=== PATIENT | male | born 1965 | race Caucasian/White ===

== ENCOUNTER 2017-07-05 22:49 | Emergency (ER) | payer OTHER ==
[~2017-07-05] VITALS: Ht 190.5 cm; Wt 106.6 kg
[~2017-07-05 22:49] MED LIST: BACLOFEN10 MG PO; COL-RITE250 MG PO; GABAPENTIN300 MG PO; NORTRIPTYLINE H25 MG PO; OXYCODONE HCL5 MG PO; OXYCONTIN10 MG PO; TRAMADOL HCL50 MG PO; VENTOLIN HFA18 GM INH
== END 2017-07-06 00:58 | disposition home or self-care (01) ==
LOC: ED 22:49
DX: S13.4XXA Sprain of ligaments of cervical spine, initial encounter (principal); I10 Essential (primary) hypertension; F17.200 Nicotine dependence, unspecified, uncomplicated; Z88.0 Allergy status to penicillin; Z79.899 Other long term (current) drug therapy; W05.0XXA Fall from non-moving wheelchair, initial encounter
CPT/HCPCS: 70450; 72125; 99284

== ENCOUNTER 2017-08-11 20:24 | Emergency (ER) | payer OTHER ==
[~2017-08-11] VITALS: Ht 190.5 cm; Wt 106.6 kg
[2017-08-11] MEDS ORDERED: NEURONTIN400 MG PO (20:34)
== END 2017-08-11 23:05 | disposition home or self-care (01) ==
LOC: ED 20:24
DX: S16.1XXA Strain of muscle, fascia and tendon at neck level, initial encounter (principal); I10 Essential (primary) hypertension; F17.200 Nicotine dependence, unspecified, uncomplicated; Z88.0 Allergy status to penicillin; Z79.899 Other long term (current) drug therapy; W01.0XXA Fall on same level from slipping, tripping and stumbling without subsequent striking against object, initial encounter
CPT/HCPCS: 70450; 72125; 99284

== ENCOUNTER 2018-03-02 21:29 | Emergency (ER) | payer OTHER ==
[~2018-03-02] VITALS: Ht 190.5 cm; Wt 108.9 kg
[~2018-03-02 21:29] MED LIST changes: +NEURONTIN400 MG PO
[2018-03-02] MEDS ORDERED: CYCLOBENZAPRINE10 MG PO (21:41)
[2018-03-03] MEDS ORDERED: PREDNISONE20 MG PO (00:30)
[2018-03-03] MEDS ORDERED: IPRAT-ALBUT 0.5-3 ML INH (00:30)
[2018-03-03] MEDS ORDERED: TRUNEB NEBULIZ1 EACH INH (00:32)
--- NOTE | 2018-03-03 06:25 | EKG ---
[facility] [address] [place] [address] Signed Normal sinus rhythm Left axis deviation Nonspecific T wave abnormality Abnormal ECG When compared with ECG of 10-MAY-2017 03:45, Minimal criteria for Inferior infarct are no longer present Confirmed by JUSTIN PARIS MD ([id number]) on 03/03/2018 6:25:32 AM Electronically Signed By: JUSTIN PARIS MD 03/03/18 0625 PATIENT NAME: CHAMALINI YANIRA Electrocardiogram DATE OF : 65 PHYSICIAN: JUSTIN PARIS MD REPORT #: [id number] REPORT IS CONFIDENTIAL AND NOT TO BE RELEASED WITHOUT AUTHORIZATION
== END 2018-03-03 01:18 | disposition home or self-care (01) ==
LOC: ED 21:29
DX: J44.1 Chronic obstructive pulmonary disease with (acute) exacerbation (principal); F17.200 Nicotine dependence, unspecified, uncomplicated; Z88.0 Allergy status to penicillin; Z79.899 Other long term (current) drug therapy
CPT/HCPCS: 71045; 80053; 83735; 84484; 85025; 93005; 93010; 94640; 94644; 96374; 99284; J2930

== ENCOUNTER 2018-08-15 15:15 | Emergency (ER) | payer OTHER ==
[~2018-08-15] VITALS: Ht 190.5 cm; Wt 112.5 kg
--- OUTSIDE RECORDS SUMMARY | ~2018-08-15 | XMS | Encounter Summary ---
Demographics + + + | Address | [address] | | | [place] [address] | + + + | Home Phone | | + + + | Preferred Language | Unknown | + + + | Marital Status | Single | + + + | Moravian Affiliation | Unknown | + + + | Race | Unknown | + + + | Ethnic Group | Unknown | + + + Author + + + | Author | [facility] | + + + | Organization | [facility] | + + + | Address | Unknown | + + + | Phone | Unavailable | + + + Care Team Providers + +------+ + | Care Instrumentation And Control Technician Name | Role | Phone | + +------+ + | Samir Melchor | PCP | | + +------+ + Encounter Details +--------+ + + + + | Date | Type | Department | Care Team | Description | +--------+ + + + + | 07/09/ | Documentati | [facility] [place] | Jacob Bajwa, | | | 2018 | on Only | Nilda Crook | [address] | | | | | [address] | [address], | | | | | [place], [place] | [place] [address] | | | | | [address] | [phone] | | | | | [phone] | | | +--------+ + + + + Social History + +-------+ +--------+------+ | Tobacco Use | Types | Packs/Day | Years | Date | | | | | Used | | + +-------+ +--------+------+ | Never Assessed | | | | | + +-------+ +--------+------+ + + + | Sex Assigned at | Date Recorded | | | | + + + | Not on file | | + + + as of this encounter Plan of Treatment Not on fileas of this encounter Visit Diagnoses Not on filein this encounter"
--- OUTSIDE RECORDS SUMMARY | ~2018-08-15 | XMS | Clinical Summary ---
Demographics + + + | Address | [address] | | | [place] [address] | + + + | Home Phone | | + + + | Preferred Language | Unknown | + + + | Marital Status | Single | + + + | Mandaen Affiliation | Unknown | + + + | Race | Unknown | + + + | Ethnic Group | Unknown | + + + Author + + + | Author | [facility] | + + + | Organization | [facility] | + + + | Address | Unknown | + + + | Phone | Unavailable | + + + Care Team Providers + +------+ + | Care Ethnographic Materials Conservator Name | Role | Phone | + +------+ + | Samir Melchor | PP | | + +------+ + Allergies Not on File Current Medications Not on file Active Problems Not on file Encounters +--------+ + + + + | Date | Type | Specialty | Care Team | Description | +--------+ + + + + | 07/09/ | Documentati | | Garett, Jacob, | | | 2018 | on Only | | MD | | +--------+ + + + + from Last 3 Months Social History + +-------+ +--------+------+ | Tobacco [...] +------+-------+ + | MEDICAID | MISAEL | [id number] | | | [address] | | | N | | | | [place] | | | [place] | | | | [address] | | | TRUST VAULT CLERK | | | | | + +--------+ [...] | Self | [birth year] | Home: | [address] | | | al/Fam | | 1965 | [phone] | [place] | | | thomas | | | [phone] | [phone] | + +--------+ +--------+ + +"
--- OUTSIDE RECORDS SUMMARY | ~2018-08-15 | XMS | Clinical Summary ---
Demographics + + + | Address | [address] | | | [place] [address] | + + + | Home Phone | | + + + | Preferred Language | Unknown | + + + | Marital Status | Single | + + + | Confucianism Affiliation | Unknown | + + + | Race | Unknown | + + + | Ethnic Group | Unknown | + + + Author + + + | Author | [facility] | + + + | Organization | [facility] | + + + | Address | Unknown | + + + | Phone | Unavailable | + + + Care Team Providers + +------+ + | Care Customs Compliance Director Name | Role | Phone | + [...] +------+-------+ + | MEDICAID | MISAEL | [id number] | | | [address] | | | N | | | | [place] | | | [place] | | | | [address] | | | STAFF REGISTERED NURSE | | | | | + +--------+ [...] | | al/Fam | | 1965 | [phone] | [place] | | | [place]omas | | | [phone] | [phone] | + +--------+ +--------+ + +"
--- OUTSIDE RECORDS SUMMARY | ~2018-08-15 | XMS | Encounter Summary ---
Demographics + + + | Address | [address] | | | [place] [address] | + + + | Home Phone | | + + + | Preferred Language | Unknown | + + + | Marital Status | Single | + + + | Religion Affiliation | Unknown | + + + | Race | Unknown | + + + | Ethnic Group | Unknown | + + + Author + + + | Author | [facility] | + + + | Organization | [facility] | + + + | Address | Unknown | + + + | Phone | Unavailable | + + + Care Team Providers + +------+ + | Care Medical Office Assistant Name | Role | Phone | + +------+ + | Samir Melchor | PCP | | + +------+ + Encounter Details +--------+ + + + + | Date | Type | Department | Care Team | Description | +--------+ + + + + | 07/09/ | Documentati | [facility] [place] | Jacob Bajwa, | | | 2018 | on Only | Nilda [facility]ok | [address] | | | | | [address] | [address] [place], | | | | | [place], [place] | [place] [address] | | | | | [address] | [phone] | | | | | [phone] | | | +--------+ + + + [...]
[~2018-08-15 15:15] MED LIST changes: +CYCLOBENZAPRINE10 MG PO; +IPRAT-ALBUT 0.5-3 ML INH; +PREDNISONE20 MG PO; +TRUNEB NEBULIZ1 EACH INH
--- OUTSIDE RECORDS SUMMARY | 2018-08-15 15:20 | XMS ---
PreManage Notification: MALINI CHA Security Director Of Cardiology Events No recent Security Events currently on file CRITERIA MET - [facility] - 2 Visits in 30 Days CARE PROVIDERS SURJIT NANCE [facility] 03/22/2017-Current PHONE: [phone] PCP_Unattributed Primary Care 03/22/2017-Current PHONE: Unknown SURJIT NANCE Primary [facility] Current PHONE: Unknown JASON LUNDBERG Primary [facility] PHONE: Unknown ALEX VELÁZQUEZ Primary Care 07/12/2015-Current PHONE: [phone] Jim has no Care Guidelines for this patient. EClarisse VISIT COUNT (12 MO.) [address] Anthony Dinesh TOTAL 4 NOTE: Visits indicate total known visits. 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
[2018-08-15] MEDS ORDERED: CIPRO500 MG PO (15:54)
== END 2018-08-15 16:35 | disposition home or self-care (01) ==
LOC: ED 15:15
DX: S91.332A Puncture wound without foreign body, left foot, initial encounter (principal); I10 Essential (primary) hypertension; Z87.891 Personal history of nicotine dependence; Z88.0 Allergy status to penicillin; Z79.899 Other long term (current) drug therapy; W45.0XXA Nail entering through skin, initial encounter
CPT/HCPCS: 73630; 99283

== ENCOUNTER 2018-11-24 22:16 | Emergency (ER) | payer OTHER ==
[~2018-11-24] VITALS: Ht 190.5 cm; Wt 112.5 kg
[~2018-11-24 22:16] MED LIST changes: +CIPRO500 MG PO
== END 2018-11-24 23:04 | disposition home or self-care (01) ==
LOC: ED 22:16
DX: S90.112A Contusion of left great toe without damage to nail, initial encounter (principal); W22.8XXA Striking against or struck by other objects, initial encounter; I10 Essential (primary) hypertension; J44.9 Chronic obstructive pulmonary disease, unspecified; F17.200 Nicotine dependence, unspecified, uncomplicated; Z88.0 Allergy status to penicillin
CPT/HCPCS: 73630; 99283

== ENCOUNTER 2019-01-28 02:27 | Emergency (ER) | payer OTHER ==
[~2019-01-28] VITALS: Ht 190.5 cm; Wt 112.5 kg
--- NOTE | 2019-01-28 07:28 | EKG ---
[facility] [address] [place] [address] Signed Normal sinus rhythm Left anterior fascicular block Cannot rule out Inferior infarct (masked by fascicular block?) , age undetermined Abnormal ECG When compared with ECG of 02-MAR-2018 21:51, Minimal criteria for Inferior infarct are now present Nonspecific T wave abnormality no longer evident in Anterior leads Confirmed by JUSTIN PARIS MD ([id number]) on 01/28/2019 7:28:32 AM Electronically Signed By: JUSTIN PARIS MD 01/28/19 0728 PATIENT NAME: MALINI CHA Electrocardiogram DATE OF : 65 PHYSICIAN: JUSTIN PARIS MD REPORT #: [id number] REPORT IS CONFIDENTIAL AND NOT TO BE RELEASED WITHOUT AUTHORIZATION
== END 2019-01-28 04:39 | disposition home or self-care (01) ==
LOC: ED 02:27
DX: J44.1 Chronic obstructive pulmonary disease with (acute) exacerbation (principal); I10 Essential (primary) hypertension; F17.200 Nicotine dependence, unspecified, uncomplicated; Z88.0 Allergy status to penicillin
CPT/HCPCS: 71045; 80053; 83735; 83880; 85025; 93005; 93010; 94644; 96374; 99285-25; 99406; J2930

== ENCOUNTER 2019-02-24 14:51 | Emergency (ER) | payer OTHER ==
--- OUTSIDE RECORDS SUMMARY | ~2019-02-24 | XMS | Clinical Summary ---
Demographics + + + | Address | [address] | | | [place] [address] | + + + | Home Phone | | + + + | Preferred Language | Unknown | + + + | Marital Status | Single | + + + | Jewish Affiliation | Unknown | + + + | Race | Unknown | + + + | Ethnic Group | Unknown | + + + Author + + + | Author | [facility] | + + + | Organization | [facility] | + + + | Address | Unknown | + + + | Phone | Unavailable | + + + Care Team Providers + +------+ + | Care Farm Demonstrator Name | Role | Phone | + +------+ + | Samir Melchor | PP | | + +------+ + Allergies Not on File Current Medications Not on file Active Problems Not on file Social History + +-------+ +--------+------+ | Tobacco [...] on file | | + + + Plan of Treatment + + + + + | Health Maintenance | Due Date | Last Done | Comments | + + + + + | Vaccine: | | | | | Dtap/Tdap/Td (1 - | 4 | | | | Tdap) | | | | + + + + + | Vaccine: Zoster (1 | | | | | of 2) | 5 | | | + + + + + | Vaccine: Influenza | | | | | (#1) | 8 | | | + + + + + Results Not on filefrom Last 3 Months Insurance + +--------+ +------+-------+ + | Payer | Benefi | Subscriber | Type | Phone | Address | | | t Plan | ID | | | | | | / | | | | | | | Group | | | | | + +--------+ +------+-------+ + | MEDICAID | MISAEL | [id number] | | | [address] | | | N | | | | [place] | | | [place] | | | | [address] | | | SEARCH COORDINATOR | | | | | + +--------+ +------+-------+ + + +--------+ +--------+ + + | Guarantor Name | Accoun | Relation to | Date | Phone | Billing Address | | | t Type | Patient | of | | | | | | | | | | + +--------+ +--------+ + + | BLAZE CHA | Person | Self [birth year] | Home: | [address] [place] [address] | | | al/Fam | | 1965 | [phone] | [place] | | | [place]omas | | | [phone] | [phone] | + +--------+ +--------+ + +"
--- OUTSIDE RECORDS SUMMARY | ~2019-02-24 | XMS | Clinical Summary ---
Demographics + + + | Address | [address] | | | [place] [address] | + + + | Home Phone | | + + + | Preferred Language | Unknown | + + + | Marital Status | Single | + + + | Orthodox Affiliation | Unknown | + + + | Race | Unknown | + + + | Ethnic Group | Unknown | + + + Author + + + | Author | [facility] | + + + | Organization | [facility] | + + + | Address | Unknown | + + + | Phone | Unavailable | + + + Care Team Providers + +------+ + | Care Aircraft Inspection Record Clerk Name | Role | Phone | + [...] +------+-------+ + | MEDICAID | MISAEL | [id number] | | | [address] | | | N | | | | [place] | | | [place] | | | | [address] | | | 

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
[2019-02-24] MEDS ORDERED: ZOFRAN4 MG PO (16:40)
[2019-02-24] MEDS ORDERED: OXYCODONE HCL5 MG PO (16:40)
[2019-02-24] MEDS ORDERED: IBU800 MG PO (16:40)
== END 2019-02-24 16:50 | disposition home or self-care (01) ==
LOC: ED 14:51
DX: S39.012A Strain of muscle, fascia and tendon of lower back, initial encounter (principal); S93.401A Sprain of unspecified ligament of right ankle, initial encounter; S63.619A Unspecified sprain of unspecified finger, initial encounter; S30.0XXA Contusion of lower back and pelvis, initial encounter; V86.99XA Unspecified occupant of other special all-terrain or other off-road motor vehicle injured in nontraffic accident, initial encounter; I10 Essential (primary) hypertension; J44.9 Chronic obstructive pulmonary disease, unspecified; F17.200 Nicotine dependence, unspecified, uncomplicated; Z88.0 Allergy status to penicillin
CPT/HCPCS: 71260; 72125; 73130; 73610; 74177; 80053; 81001; 82150; 82550; 83690; 85025; 86850; 86900; 86901; 99284-25; G0480; Q9967

== ENCOUNTER 2019-12-30 05:32 | Emergency (ER) | payer SELFPAY ==
[~2019-12-30] VITALS: Ht 190.5 cm; Wt 104.3 kg
[~2019-12-30 05:32] MED LIST changes: +IBU800 MG PO; +ZOFRAN4 MG PO
[2019-12-30] MEDS ORDERED: NORCO 5-325 TA1 EACH PO (06:24)
[2019-12-30] MEDS ORDERED: CRUTCH1 EACH (06:24)
== END 2019-12-30 07:01 | disposition home or self-care (01) ==
LOC: ED 05:32
DX: S82.832A Other fracture of upper and lower end of left fibula, initial encounter for closed fracture (principal); S82.52XA Displaced fracture of medial malleolus of left tibia, initial encounter for closed fracture; W18.30XA Fall on same level, unspecified, initial encounter; I10 Essential (primary) hypertension; J44.9 Chronic obstructive pulmonary disease, unspecified; F17.200 Nicotine dependence, unspecified, uncomplicated; Z88.0 Allergy status to penicillin
CPT/HCPCS: 73590; 73610; 99283-25

== ENCOUNTER 2021-05-06 22:16 | Emergency (ER) | payer OTHER ==
[~2021-05-06] VITALS: Ht 190.5 cm; Wt 81.7 kg
[~2021-05-06 22:16] MED LIST changes: +CRUTCH1 EACH; +NORCO 5-325 TA1 EACH PO
== END 2021-05-09 11:45 | disposition home or self-care (01) ==
LOC: ED 22:16
DX: S19.9XXA Unspecified injury of neck, initial encounter (principal); S39.92XA Unspecified injury of lower back, initial encounter; S00.81XA Abrasion of other part of head, initial encounter; W18.2XXA Fall in (into) shower or empty bathtub, initial encounter; I10 Essential (primary) hypertension; J44.9 Chronic obstructive pulmonary disease, unspecified; F17.200 Nicotine dependence, unspecified, uncomplicated; Z88.0 Allergy status to penicillin; Z79.899 Other long term (current) drug therapy
CPT/HCPCS: 70450; 72125; 72128; 72131; 72141; 96361; 96374; 99284-25; J2405; J3480; J7030

== ENCOUNTER 2021-06-16 12:44 | Emergency (ER) | payer OTHER ==
[~2021-06-16] VITALS: Ht 190.5 cm; Wt 70.3 kg
== END 2021-06-16 16:29 | disposition home or self-care (01) ==
LOC: ED 12:44
DX: E86.0 Dehydration (principal); E46 Unspecified protein-calorie malnutrition; I10 Essential (primary) hypertension; J44.9 Chronic obstructive pulmonary disease, unspecified; Z88.0 Allergy status to penicillin; Z79.899 Other long term (current) drug therapy
CPT/HCPCS: 71045; 74177; 80053; 81001; 83690; 85025; 96374; 96375; 99284-25; J2405; J2550; J7121

== ENCOUNTER 2021-06-20 13:26 | Observation (INO) | payer OTHER ==
[~2021-06-20] VITALS: Ht 190.5 cm; Wt 55.6 kg
--- OUTSIDE RECORDS SUMMARY | 2021-06-20 13:34 | XMS ---
PreManage Notification: MALINI CHA Security Bridal Stylist Sales Consultant Events No recent Security Events currently on file CRITERIA MET - [facility] - 2 Visits in 30 Days CARE PROVIDERS MITESH HENSLYE Internal Medicine 03/02/2020-Current PHONE: [phone] MARIA D CHANCE Nurse Practitioner: Family 08/16/2018-Current PHONE: Unknown GOLDY MILIAN Physician 02/25/2019-Current PHONE: [phone] Jim has no Care Guidelines for this patient. E.Chey. VISIT COUNT (12 MO.) 3 [facility] TOTAL 3 NOTE: Visits indicate total known visits. ED/UCC VISIT TRACKING (12 MO.) 06/20/2021 13:27 [facility] [place] TYPE: Emergency COMPLAINT: - VOMITING, NAUSEA 06/16/2021 12:45 [facility] [place] TYPE: Emergency COMPLAINT: - N/V, WEIGHT LOSS DIAGNOSES: - Unspecified protein-calorie malnutrition - Essential (primary) hypertension - Dehydration - Unspecified abdominal pain - Chronic obstructive pulmonary disease, unspecified - Allergy status to penicillin - Other detention (current) drug therapy 05/06/2021 22:16 [facility] [place] TYPE: Emergency COMPLAINT: - FALL DIAGNOSES: - Other detention (current) drug therapy - Essential (primary) hypertension - Abrasion of other part of head, initial encounter - Nicotine dependence, unspecified, uncomplicated - Fall in (into) shower or empty bathtub, initial encounter - Allergy status to penicillin - Chronic obstructive pulmonary disease, unspecified - Unspecified injury of neck, initial encounter - Unspecified injury of lower back, initial encounter INPATIENT VISIT TRACKING (12 MO.) No inpatient visits to display in this time frame [id number]
[2021-06-21] MEDS ORDERED: PROTONIX40 MG PO (09:31)
[2021-06-21] MEDS ORDERED: ZOFRAN4 MG PO (09:32)
--- NOTE | 2021-06-22 16:35 | PATH ---
[facility] [address] [place], [place] [address] Signed SPECIMEN(S): A ANTRUM POLYP SPECIMEN(S): B GE JUNCTION SPECIMEN SOURCE: A. ANTRUM POLYP B. GE JUNCTION CLINICAL HISTORY: Malnutrition, unable to tolerate P.O. intake. MICROSCOPIC DESCRIPTION: Histologic sections of all submitted blocks are examined by light microscopy. These findings, together with the gross examination, support the pathologic diagnosis. Regarding specimen A, an H. pylori immunohistochemical stain (with appropriately staining controls) is negative for Helicobacter organisms. NAL:caw FINAL PATHOLOGIC DIAGNOSIS: A. Stomach, antrum, polyp, polypectomy: - Polypoid foveolar hyperplasia. - Antral mucosa with reactive gastropathy, chronic, inactive gastritis and complete intestinal metaplasia. - Negative for Helicobacter organisms (HE and IHC). - Negative for dysplasia or malignancy. B. Gastroesophageal junction, biopsy: - Squamocolumnar junction mucosa with focal intestinal metaplasia arising from a background of reflux esophagitis. - Negative for intestinal metaplasia, dysplasia or malignancy. NAL:caw:C2NR GROSS DESCRIPTION: Two specimens are received in two containers labeled with "SF." A. The specimen, labeled "SF, 1," and designated on the requisition "antrum/pylorus polypectomy," is received in formalin and consists of one fragment of pink-lara tissue (0.5 cm in greatest dimension). The specimen is submitted entirely in cassette (A1). B. The specimen, labeled "SF, 2," and designated on the requisition "GE junction biopsy," is received in formalin and consists of two fragments of white-lara tissue (0.2 and 0.3 cm in greatest dimension). The specimen is submitted entirely in cassette (B1). AC (under the direct supervision of a pathologist) PATIENT NAME: MALINI CHA PATHOLOGY DATE OF : 65 REPORT #: [id number] PHYSICIAN: JOSE ELIAS PATHOLOGY PCP: SILAS MILIAN REPORT IS CONFIDENTIAL AND NOT TO BE RELEASED WITHOUT AUTHORIZATION [facility] [address] [place], [place] [address] Signed The Gross Description was prepared using a voice recognition system. The report was reviewed for accuracy; however, sound-alike word errors, addition and/or deletions may occur. If there is any question about this report, please contact Client Services. ADDITIONAL NOTES: Immunohistochemical and/or in situ hybridization studies were performed on this case with the appropriate positive controls that react as expected. This test was developed and its performance characteristics determined by [facility]. It has not been cleared or approved by the U.S. Food and Drug Administration. The FDA has determined that such clearance or approval is not necessary. This test is used for clinical purposes. It should not be regarded as investigational or for research. [facility] is certified under the Clinical Laboratory Improvement Amendments of 1988 (CLIA) as qualified to perform high complexity clinical laboratory testing. This assay has not been validated for specimens that have been decalcified. PERFORMING LABORATORY: The technical component was performed by [facility], [address] [place] [address] (Bundle Person: Monica Ballesteros MD; CLIA# [id number]). Professional interpretation was performed by [facility], [facility], [address] [place] [address] (CLIA# [id number]). Diagnostician: Patricia Lucero MD Pathologist Electronically Signed 06/22/2021 Copies: ~ PATIENT NAME: MALINI CHA YANIRA PATHOLOGY DATE OF : 65 REPORT #: [id number] PHYSICIAN: JOSE ELIAS CROCKER PCP: SILAS MILIAN REPORT IS CONFIDENTIAL AND NOT TO BE RELEASED WITHOUT AUTHORIZATION
== END 2021-06-21 10:00 | disposition home or self-care (01) ==
LOC: ED 13:26 → MS 13:28
PROVIDERS: ADMIT Surgery; ATTEND Surgery
PROC: 0DB78ZX Excision of Stomach, Pylorus, Via Natural or Artificial Opening Endoscopic, Diagnostic (ICD-10-PCS; 2021-06-21)
PROC: 0DB48ZX Excision of Esophagogastric Junction, Via Natural or Artificial Opening Endoscopic, Diagnostic (ICD-10-PCS; 2021-06-21)
PROC: 0DB98ZX Excision of Duodenum, Via Natural or Artificial Opening Endoscopic, Diagnostic (ICD-10-PCS; principal; 2021-06-21 07:30)
DX: K29.70 Gastritis, unspecified, without bleeding (principal); K31.7 Polyp of stomach and duodenum; K29.80 Duodenitis without bleeding; K21.00 Gastro-esophageal reflux disease with esophagitis, without bleeding; K31.9 Disease of stomach and duodenum, unspecified; Z20.822 Contact with and (suspected) exposure to COVID-19; E46 Unspecified protein-calorie malnutrition; J44.9 Chronic obstructive pulmonary disease, unspecified; I10 Essential (primary) hypertension; I95.9 Hypotension, unspecified; Z88.0 Allergy status to penicillin; Z87.891 Personal history of nicotine dependence
CPT/HCPCS: 76705; 80053; 81001; 83735; 85025; 96375; 99284; C9113; G0378; J2405; J2550; J2704; J7030; J7121; U0003

== ENCOUNTER 2021-06-30 11:43 | Emergency (ER) | payer OTHER ==
[~2021-06-30] VITALS: Ht 190.5 cm; Wt 71.0 kg
[~2021-06-30 11:43] MED LIST changes: +PROTONIX40 MG PO
--- OUTSIDE RECORDS SUMMARY | 2021-06-30 11:52 | XMS ---
PreManage Notification: RUFUS CHA Security Supervisor Of Research Events No recent Security Events currently on file CRITERIA MET - [facility] - 2 Visits in 30 Days CARE PROVIDERS MITESH HENSLEY Internal Medicine 03/02/2020-Current PHONE: [phone] MARIA D CHANCE Nurse Practitioner: Family 08/16/2018-Current PHONE: Unknown GOLDY MILIAN Physician 02/25/2019-Current PHONE: [phone] ALFONZO FARR Nurse Practitioner: Family Current PHONE: [phone] Jim has no Care Guidelines for this patient. Lexie VISIT COUNT (12 MO.) 4 [facility] [place] TOTAL 4 NOTE: Visits indicate total known visits. 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 INTAKE DIAGNOSES: - Gastro-esophageal reflux disease with esophagitis, without bleeding - Hypotension, unspecified - Allergy status to penicillin - Unspecified protein-calorie malnutrition - Polyp of stomach and duodenum - Essential (primary) hypertension - Disease of stomach and duodenum, unspecified - Duodenitis without bleeding - Gastritis, unspecified, without bleeding - Personal history of nicotine dependence - Chronic obstructive pulmonary disease, unspecified [id number]
[2021-06-30] MEDS ORDERED: ONDANSETRON ODT4 MG PO (16:41)
== END 2021-06-30 17:00 | disposition home or self-care (01) ==
LOC: ED 11:43
DX: K52.9 Noninfective gastroenteritis and colitis, unspecified (principal); Z20.822 Contact with and (suspected) exposure to COVID-19; I10 Essential (primary) hypertension; J44.9 Chronic obstructive pulmonary disease, unspecified; Z79.899 Other long term (current) drug therapy
CPT/HCPCS: 74018; 74177; 80053; 81001; 83690; 83735; 85025; 96374; 99284-25; C9803; J2405; J7030; Q9967; U0003

== ENCOUNTER 2021-07-05 10:30 | Inpatient (IN) | payer OTHER ==
[~2021-07-05] VITALS: Ht 190.5 cm; Wt 75.6 kg
[~2021-07-05 10:30] MED LIST changes: +ONDANSETRON ODT4 MG PO
[2021-07-05] MEDS ORDERED: PAIN RELIEF500 M1 PO (10:48)
--- OUTSIDE RECORDS SUMMARY | 2021-07-05 11:04 | XMS ---
PreManage Notification: RUFUS CHA Security Salad Chef Events No recent Security Events currently on file CRITERIA MET - [facility] - 2 Visits in 30 Days CARE PROVIDERS MITESH HENSLEY Internal Medicine 03/02/2020-Current PHONE: [phone] MARIA D CHANCE Nurse Practitioner: Family 08/16/2018-Current PHONE: Unknown GOLDY MILIAN Physician 02/25/2019-Current PHONE: [phone] ALFONZO FARR Nurse Practitioner: Family Current PHONE: [phone] Jim has no Care Guidelines for this patient. Lexie VISIT COUNT (12 MO.) 5 [facility] [place] TOTAL 5 NOTE: Visits indicate total known visits. ED/UCC VISIT TRACKING (12 MO.) 07/05/2021 10:30 [facility] [place] TYPE: Emergency COMPLAINT: - ABD PAIN 06/30/2021 11:44 [facility] [place] TYPE: Emergency COMPLAINT: - NAUSEA/VOMITING DIAGNOSES: - Noninfective gastroenteritis and colitis, unspecified - Essential (primary) hypertension - Chronic obstructive pulmonary disease, unspecified - Other halfway (current) drug therapy - Nausea with vomiting, unspecified 06/20/2021 13:27 [facility] [place] TYPE: Emergency COMPLAINT: - VOMITING, NAUSEA 06/16/2021 12:45 [facility] [place] TYPE: Emergency COMPLAINT: - N/V, WEIGHT LOSS DIAGNOSES: - Unspecified protein-calorie malnutrition - Essential (primary) hypertension - Dehydration - Unspecified abdominal pain - Chronic obstructive pulmonary disease, unspecified - Allergy status to penicillin - Other halfway (current) drug therapy 05/06/2021 22:16 [facility] [place] TYPE: Emergency COMPLAINT: - FALL DIAGNOSES: - Other rn long term care (current) drug therapy - Essential (primary) hypertension [...] dependence - Chronic obstructive pulmonary disease, unspecified [email or web address]
--- NOTE | 2021-07-05 16:10 | NUR ---
Patient arrives to med surg via stretcher. Vitals taken, admission history and assessment complete. Pt reporting mild nausea, severe 10/10 abdominal pain, winces to stethoscope to lung bases, abdomen. LR bolus infusing WNL. Guard in room. Pt updated on plan of care, diet, medications and is agreeable to all. Oriented to room, call light system.
[2021-07-05] MEDS ORDERED: ZOFRAN4 MG PO (16:51)
[2021-07-05] MEDS ORDERED: GAS RELIEF80 MG PO (16:51)
--- NOTE | 2021-07-05 16:52 | NUR ---
MED REC COMPLETE
--- NOTE | 2021-07-05 17:37 | NUR ---
Rounded on patient, LR bolus complete, IV ABX infusing WNL. Pt states feeling pain is "about the same and haven't noticed a difference " since PRN medications. This RN and pt made plan for more PRN meds when available. Pt resting in bed watching tv. Respirations even and unlabored. Pt expresses gratitude for care. Call light in reach, will continue to monitor.
--- NOTE | 2021-07-05 19:34 | NUR ---
REPORT RECEIVED FROM DAY SHIFT RN. PT LYING IN BED ALERT AND ORIENTED. DENIES NEEDS AT THIS TIME. WHITE BOARD UPDATED. CALL LIGHT IN REACH.
--- NOTE | 2021-07-05 21:19 | NUR ---
EVENING ASSESSMENT COMPLETE. SCHEDULED MEDS ADMINISTERED PER EMAR. IV ABX INFUSING WNL. PT REFUSED HEPARIN INJECTION. EDUCATION PROVIDED, PT CONTINUED TO REFUSE. BOWEL TONES HYPOACTIVE. ABD SOFT AND NON DISTENDED. PT REPORTS FLATUS. NO BM THIS EVENING. PT DENIES FURTHER NEEDS. GUARD IN ROOM. CALL LIGHT IN REACH.
--- NOTE | 2021-07-05 23:00 | NUR ---
PT UP TO BSC WITH 2PA AND PIVOT TX TO ATTEMPT BM BUT "JUST PASSED GAS". BACK TO BED, AISHWARYA WELL. NEW BAG IVF INFUSING. NO FURTHER NEEDS. CALL LIGHT IN REACH.
--- NOTE | 2021-07-05 23:45 | NUR ---
CHANGING OF GUARDS. IV ALARMING, DISTAL OCCLUSION. IVF NOW INFUSING WNL.
--- NOTE | 2021-07-06 01:50 | NUR ---
VS AND I&O COMPLETE. PT REPORTS ABD PAIN 08/05. PRN FOR PAIN ADMINISTERED PER EMAR. DENIES NAUSEA. IV ABX INFUSING WNL. GUARD IN ROOM.
--- NOTE | 2021-07-06 05:30 | NUR ---
IN TO ASSIST BANQUET LEAD PT REFUSING TO LET HER DRAW LABS AND REQUESTING LABS BE DRAWN FROM PERIPHERAL IV. EDUCATION PROVIDED REGARDING PIV USE. PT AGREEABLE TO LETTING LAB ATTEMPT DRAW. DRAW UNSUCCESSFUL. PT IRRITABLE AND INAPPROPRIATE TOWARDS HAT SIZER, APPEARS ANXIOUS ABOUT NEEDLE STICK. ATTEMPTED TO REDIRECT, PT NOT RECEPTIVE. REPORTS FEELING "DIZZY". AGAIN TRIED TO EDUCATE AND PROVIDE SUPPORT FOR PATIENT. PT APPEARS TO BECOME MORE AGITATED WITH DISCUSSION. THIS RN CELIO LABS FROM PIV WITHOUT DIFFICULTY. PT CONTINUES TO REPORT FEELING DIZZY AFTER DRAW COMPLETE. VS DONE AND WNL. IVF INFUSING WNL. ASSISTED PT TO REPOSITION IN BED TO RELIEVE PRESSURE FROM SHACKLES AROUND ANKLES. MOUTH SWABS PROVIDED FOR ORAL CARE. PT REMAINS NPO. GUARD IN ROOM. NO FURTHER NEEDS. CALL LIGHT IN REACH.
--- NOTE | 2021-07-06 07:15 | NUR ---
REPORT RECEIVED FROM KELBY MEJIAS. PT RESTING IN BED ON BACK WITH HEAD OF BED ELEVATED TO 25 DEGREES. PT REPORTS 9/10 ABDOMINAL PAIN AND NAUSEA. PT ALSO REQUESTS FOOD STATING "I'M STARVING." EDUCAITON DONE WITH PT REGARDING NPO STATUS AND GI REST. PT VERBALZIES UNDERSTANDING. NO ADDITIONAL REQUESTS OR COMPLAINTS. CALL LIGHT WITHIN REACH.
--- NOTE | 2021-07-06 07:26 | NUR ---
PT CALL LIGHT ON. PT STATES HE NEEDS TO "WASH MY EYES BECAUS THEY ARE BURNING LIKE HECK." WARM WET WASHCLOTH PROVIDED. PT WASHES HIS OWN EYES. NO ADDITIONAL REQUESTS OR COMPLAINTS. CALL LIGHT JF BRICE. OFFICER AT BEDSIDE.
--- NOTE | 2021-07-06 08:27 | NUR ---
MORNING ASSESSMENT AND MEDICATION DUE. THIS RN TO ROOM. PT CONTINUES TO REPORT 9/10 PAIN IN ABDOMEN. PT DENIES NAUSEA THIS MORNING. MD TO BEDSIDE FOR ROUNDS. PT TENDER TO TOUCH IN ABDOMEN WITH MD EXAM. PT VERBALIZES UNDERSTANDING OF PLANNED SURGERY/PROCEEDURE AND STATES HE WOULD LIKE TO PROCEED. MEDICATION GIVEN (SEE MAR). PT DECLINES HEPARIN AND STATES HE UNDERSTANDS THAT THIS MEDICAITON IS MEANT TO PREVENT BLOOD CLOTS, PT STATE HE UNDERSTANDS THAT HE COULD DEVELOP A BLOOD CLOT WITHOUT IT AND STILL WANTS TO DECLINE THE MEDICATION. MD AWARE. SURGERY PLANNED FOR LATER THIS MORNING. ASSESSMENT DONE: IV WNL, WITH BRISK BLOOD RE TURN NOTED WITH FLUSH, NO S/S PHLEBITIS NOTED. IV AX INFUSING. PT REPORT NUMBNESS AND WEAKNESS IN LLE, WEAK PLANTAR AND DORSI FLEXTION NOTED. PT REPORTS HE IS ABLE TO LIFT LEG OFF OF BED BUT WHEN ROLLING SIDE TO SIDE FOR SKIN ASSESSMENT PT MOVES LEFT LEG WITH OUT ISSUE, INDEPENDANTLY. PEERLA NOTED. BLOWE TONES NOTED. ABDOMEN TENDER TO TOUCH, MOSTLY ON LEFT SIDE. PT REPORTS HE IS PASSING EMBER. 0.5CM ABRASION NOTED TO LATERAL LEFT HIP, ALLEVYN APPLIED. GRANULATION TISSUE NOTED IN WOUND BASE. EDGES VIABLE. CHG WIPE DOWN DONE BY ISAIAH CNA'S PT ASSESTS MINIMALLY STATING HE IS UNABLE TO SIT UP. ABLE TO ASSIST WITH SIDE TO SIDE ROLLING. PT VERBALIZES UNDERSTANDING OF PLAN OF CARE. CALL LIGHT WITHIN REACH. BED RAILS UP. OFFICER AT BEDSIDE.
--- NOTE | 2021-07-06 09:10 | NUR ---
REPORT GIVEN TO ANALYTICAL LABORATORY TECHNICIAN. PT TO OPERATING ROOM
--- NOTE | 2021-07-06 10:33 | NUR ---
PT. HAS SMALL 2X2 DRESSING ON LEFT LATERAL HIP, STATES HE GOT A BED SORE FROM "LAYING ON FLOOR FOR 2 MONTHS"
--- NOTE | 2021-07-06 12:22 | NUR ---
07/06/21 1222 Carina Anderson 1210- PT TO PACU IN SF POSITION. EYES CLOSED. DOES NOT RESPOND TO VERBAL OR TACTILE STIMULI. PT SLEEPING IN ORAL AIRWAY IN PLACE. BREATHING EASY AND UNLABORED. SPO2 >95% ON 6 L O2 VIA SIMPLE MASK. 1218- PT OPENS EYES AND FOLLOWS COMMANDS. ORAL AIRWAY REMOVED. BREATHING EASY AND UNLABORED. SPO2 >95% ON 6 L O2 VIA SIMPLE MASK.
--- NOTE | 2021-07-06 13:10 | NUR ---
PT ARRIVED FROM PACU, REPORT RECEIVED FROM KELBY MARCH. PT RESTING WITH EYES CLOSED. OPENS EYES TO GENTIL TOUCH AND VOICE. PT REPORTS "A LITTLE" PAIN HOLDING FINGER AND THUMB CLOSE TOGETHER AT THE SAME TIME A GESTURE, PT THEN STATES PAIN IS 7/10 "BECAUSE I WANT PAIN MEDICATION." SEE MAR FOR MEDICATION GIVEN. PT DENIES NAUSEA. PT DRIFTS BACK TO SLEEP QUICKLY, RR = 12. CONTINIOUS PULSE OX PLACED, O2 SATURATIONS ABOVE 94% ON ROOM AIR, EVEN WITH SLEEPING. LUNG SOUNDS CLEAR. PT ORIENTED BUT VERY DROWSY, FALLING ALSEEP BETWEEN CARES. RASS SCORE OF -2. PT ABLE TO MOVE ALL EXTREMITIES AND LIFT HEAD OFF OF PILLOW TO COMMAND. POST OP DUE TO VOID. LAPAROSCOPIC INCISIONS X5 WNL, WITH STERI STRIPS INTACT, SCANT AMOUT OF RED DRAINAGE NOTED. ALLEVYN TO LEFT HIP REMAINS C/D/I, WOUND COVERED. NO ADDITIONAL REQUESTS OR COMPLAINTS. CALL LIGHT WITHIN REACH. OFFICER AT BEDSIDE.
--- NOTE | 2021-07-06 13:30 | NUR ---
PT CALL LIGHT ON. PT REPORTS NEED TO VOID. URINAL USED BY PT WHILE IN BED. NO ASSISTANCE NEEDED. PT VOIDS 175 ML CLEAR YELLOW URINE. NO ADDITIONAL REQUESTS OR COMPLAINTS. CALL LIGHT WITHIN REACH. OFFICER AT [facility].
--- NOTE | 2021-07-06 14:00 | NUR ---
ASSESSMENT AND VITALS DUE. THIS RN TO ROOM. PT RESTING WITH EYES CLOSED. AWKANES TO VOICE AND FOLLOWS COMMANDS. RASS SCORE OF -1. WHEN ASKED IF HE HAS PAIN PT STATS "I JUST WANT TO SLEEP!" PT EVENTUALLY ABLE TO RATE PAIN AT 5/10. PT DENIES NAUSEA. IV SITE WNL. PT FALLS BACK TO SLEEP QUICKLY. NO ADDITIONAL PAIN MEDICATION GIVEN AT THIS TIME. PT REACHES TO BEDSIDE TABLE AND USES URINAL INDEPENDANTLY. VOIDS 275ML CLEAR YELLOW URINE, LIGHTENED IN COLOR. BOWEL TONES ACTIVE. STERI STRIPS INTACT, INCISIONS WELL APROXIMATED. NO NEW DRAINAGE NOTED. ASSESSMENT OTHEWISE UNCHANGED. PT CONTUES TO STATES "JUST LET ME REST!." NO ADDITONAL REQUESTS OR COMPLAINTS. CALL LIGHT WITHIN REACH. OFFICER AT BEDSIDE.
--- NOTE | 2021-07-06 15:10 | NUR ---
ASSESSMENT AND VITAL SIGNS DUE. THIS RN TO ROOM. PT RESTING WITH EYES CLOSED, HEAD OF BED ELEVATED TO 29 DEGREES. RESPIRATIONS EVEN AND UNLABORED. PT TOELRATING ROOM AIR WITH OXYGEN SATURATIONS ABOVE 94% EVEN WITH SLEEP. PT AWAKENS TO VOICE AND LIGHT TOUCH. VITAL SIGNS STABLE. PT REPORTS 4/10 ABDOMINAL PAIN AND DENIES NAUSEA. RASS SCORE OF 0. PT REPORTS HE IS READY TO TRY SOMETHING TO EAT. ICE CREAM ORDERED PER PT REQUEST. 2 PERSON ASSIST UP TO STAND X3 AT EDGE OF BE. PT VOIDS ADDITIONAL 300ML CLEAR YELLOW URINE AT EDGE OF BED. PT STANDS AND SHUFFELS THREE STEPS TOWARD HEAD OF BED. ABDOMINAL LAPAROSCOPIC INCISIONS WNL, NO NEW DRAINAGE NOTED. STERI STRIPS INTACT. EDGES WELL APROXIMATED. DR. BARILLAS TO BEDSIDE TO ROUND WITH PT. PT REPORTS PAIN IN ABDOMEN STATING WHEN ASKED "I CAN'T REALLY TELL" WHERE PAIN MOSTLY IS LOCATED. PT EATING ICE CREAM AND WATCHING TV. ASSESSMENT OTHERWISE UNCHANGED. NO ADDITIONAL REQUESTS OR COMPLAINTS. OFFICER AT BEDSIDE. CALL LIGHT WITHIN REACH.
--- NOTE | 2021-07-06 16:05 | NUR ---
VITALS AND ASSESSMENT DUE. THIS RN TO ROOM. PT AWAKE AND ALERT, SITTING UP IN BED WATCHING TV. PT REPORTS NAUSEA "BECAME WORSE" AND REPORTS 10/10 PAIN. PT POINTS TO UMBILICAL INCISION SITE. PT REPORTS THAT HE NEEDS AN EMESIS BAG IN CASE HE WANTS TO THROW UP. EMESIS BAG PROVIDED. PT ADVISED THAT HE SHOULD NOT EAT DINNER IF HE CONTINUES TO FEEL NAUSATED. PT THEN STATES "WELL, I'M NOT REALLY NAUSEOUS, I CAN EAT JUST FINE, I JUST HAVE PAIN." COMPLAINTS CLARIFIED WITH PT AND PT STATES NO NASUEA, CONTINUES TO REPORT 10/10 PAIN AND REQUESTS PAIN MEDICAITON. PT CONTINUES TO REPORT WEAKNESS IN LEFT LEG, ABLE TO MOVE LEG AND STAND. ALLEVYN TO LEFT HIP REMAINS IN PLACE, C/D/I. LAPAROSCOPIC INCISION SITES X5 C/D/I WITH EDGES WELL APROXIMATED, STERI STRIPS REMAIN INTACT, NO NEW DRAINAGE NOTED. NO ADDITIONAL REQUESTS OR COMPLAINTS. CALL LIGHT WITHIN REACH. BED RAILS UP. CPOX REMAINS IN PLACE WITH OXYGEN SATURATIONS ABOVE 94% ON ROOM AIR.
--- NOTE | 2021-07-06 16:23 | NUR ---
[facility], no needs from CM.
--- NOTE | 2021-07-06 16:37 | NUR ---
CALL PLACED TO DR. WRIGHT FOR UPDATE. NO ANSWER AT THIS TIME.
--- NOTE | 2021-07-06 17:09 | NUR ---
CALL PLACED TO DR. WRIGHT REGARDING PTS PAIN CONTROL AND UPDATE ON PTS STATUS. NEW PAIN MEDICAITON ORDER GIVEN, REPEAT BACK PERFORMED, ORDER ENTERED. NO ADDITIONAL NEW ORDERS AT THSI TIME.
--- NOTE | 2021-07-06 17:14 | NUR ---
PT CALL LIGHT ON. PT REQUESTS ASSISTANCE UP TO VOID. PT UP TO EDGE OF BED WITH STAND BY ASSIST. PT VOIDS. 250CLEAR YELLOW URINE INTO URINAL WITH OUT ASSISTANCE. PT GETS SELF BACK TO BED WITHOUT ASSISTNACE. PT DENIES NAUSEA, REQUESTING FOODS BY NAME. DINNER TRAY ARRIVED, PT STATES HE DOES NOT WANT THE FOODS THAT WERE PROVIDED STATING "I NEED SOMETHING HOT." CHICKEN, BEEF AND VEGETABLE BROTH OFFERED. PT DECLINES ALL STATING "I WON'T EAT IF I DONT' HAVE WHAT I WANT." PT REPORTS 8/10 ABDOMINAL PAIN, MOSTLY AT UMBILICAL INCISION. SEE MAR FOR MEDICAITON GIVEN. PT DENIES ADDITIONAL REQUESTS OR COMPLAINTS. CALL LIGHT WITHIN REACH. BED RAILS UP. OFFICER AT BEDSIDE.
--- NOTE | 2021-07-06 18:15 | NUR ---
PT CALL LIGHT ON. REPORTS "ALARMS ARE GOING OFF." THIS RN TO ROOM. NO ALARMS BEEPING AT THIS TIME. STAYING IN ROOM TO MONITOR. PT HAS FINISHED DINNER THAT WAS PROVIDED. PT DENIES NAUSEA AND STATES PAIN IS "MUCH BETTER" NOW RATED 7/10. PT WATCHING TV. NO ADDITIONAL REQUESTS OR COMPLAINTS. NO ADDITIONAL ALARMS HEARD. CALL LIGHT WITHIN REACH. OFFICER AT BEDSIDE.
--- NOTE | 2021-07-06 18:56 | NUR ---
PT HERE FOR ABDIMOINAL PAIN. LAPAROSCOPIC APPY AND TREVON THIS SHFIT. PT ABLE TO STAND AND SHUFFLE FEET AT THIS TIME, ENCORUAGED TO STAND WITH URINATION. PT TOELRATING FULL LIQUID DIET WITHOUT NAUSEA. PT REPORTS 4-10/10 PAIN IN ABDOMEN. PRN PAIN MEDICATIONS GIVEN. LAPAROSCOPIC INCISIONS TO ABDOMEN X5, STERI STRIPS C/D/I WITH SCANT RED DRAINAGE, EDEGES WELL APROXIMATED. PT VOIDING QUANTITY SUFFICIENT. LUNG SOUNDS CLEAR. HEART TONES REGULAR. PT INCARCARATED, OFFICERS AT BEDSIDE. PT USES CALL LIGHT APPROPRIATLY.
--- NOTE | 2021-07-06 19:07 | NUR ---
REPORT GIVEN TO KELBY LESTER, WHO IS ASSUMING CARE OF PT.
--- NOTE | 2021-07-06 19:10 | NUR ---
PT CALL LIGHT ON. PT REPORTS "TERRIBLE PAIN." THIS RN TO ROOM. PT SITTING INDEPENDANTLY ON EDGE OF BED. PT REPORTS "CRAMPING" PAIN IN UPPER CENTRAL ABDOMEN. GAS/GURGGLEING BOWEL TONES HEARD. PT STANDS WITH 2 PERSON ASSIST AND TAKES 2-3 STEPS IN ROOM. PT BURPS LARGE AMOUNTS. ICE PACK PROVIDED. ADDITONAL PAIN MEDICATION PROVIDED. PT REPORTS HE WOULD LIKE TO SIT ON THE EDGE OF THE BED. PT ALSO STATES HE "MIGHT BE DIZZY." PT ADVISED THAT HOSPTIAL POLICY STATES HE NEEDS TO GET BACK TO BED IF HE IS FEELING DIZZY. PT REFUSES STATING HE IS GOING TO SIT ON THE EDGE OF THE BED. PT STEADY ON EDGE OF BED. OFFICER WITH PT. PT CONTINUES TO BURP. NO ADDITIONAL REQUESTS OR COMPLAINTS. CALL LIGHT LENCHO BRICE. OFFICER WITH PT.
--- NOTE | 2021-07-06 19:46 | NUR ---
THIS RN TO ROOM TO CHECK ON PT. PT BACK TO BED WITH STAND BY ASSIST. KNEES RAISED FOR SUPPORT. PT REPORTS PAIN CONTINUES AT 10/10. TREVON, PTS RN AWARE. ICE PACK USE ENCORUAGED. BED RAILS UP. CALL LIGHT WITHIN REACH. OFFICER AT BEDSIDE.
--- NOTE | 2021-07-06 19:58 | NUR ---
PATIENT JUST LAYED BACK DOWN IN BED PER KELBY DUGAN. SHIFT REPORT GIVEN TO THIS RN BY KELBY DUGAN. PATIENT HAS NO CURRENT CARE NEEDS. PATIENT'S [employer] ANKLE RESTRAINTS ARE IN PLACE AND [employer] OFFICER IN THE ROOM. HERE TO SEE THE PATIENT. CALL LIGHT IS IN REACH.
--- NOTE | 2021-07-06 20:30 | NUR ---
DONE SEEING THE PATIENT SAID IT WAS OK FOR THE PATIENT TO HAVE MAALOX. PATIENT'S ASSESSMENT IS COMPLETE, VS ARE STABLE, LUNGS ARE CLEAR, BOWEL TONES ARE ACTIVE, CALL LIGHT IN REACH. [employer] OFFICER AT BEDSIDE. PM MEDS GIVEN.
--- NOTE | 2021-07-06 21:52 | NUR ---
PATIENT SITTING IN SEMI-FOWLERS POSITION IN BED. PATIENT'S EYYS ARE CLOSED, HIS RESPIRATIONS ARE REGULAR AND EVEN, AND HIS CALL LIGHT IS IN REACH. PATIENT DID NOT STIR WHEN I CAME IN THE ROOM. [employer] OFFICER SITTING AT BEDSIDE.
--- NOTE | 2021-07-06 22:35 | NUR ---
PATIENT GIVEN ICE CREAM HE REQUESTED. NO OTHER CARE NEEDS AT THIS TIME. CALL LIGHT IS IN REACH. [employer] OFFICER AT BEDSIDE.
--- NOTE | 2021-07-07 00:37 | NUR ---
PATIENT RESTING IN BED WATCHING TV. PATIENT HAS NO FACIAL GRIMACE, MUSCLES ARE RELAXED AND NOT TENSE, RESPIRATIONS ARE UNLABORED, AND PATIENT HAS NO GAURDING OF SURGICAL SITES. PATIENT REQUESTING,"SNACKS", PATIENT GIVEN 2 PUDDINGS AND GRAHM CRACKERS. PATIENT'S URINAL EMPTIED. PATIENT HAD NO MORE PATIENT REQUESTS AT THIS TIME. [employer] OFFICER REMAINS AT BEDSIDE.
--- NOTE | 2021-07-07 02:15 | NUR ---
in with rn to get pt vitals, bedside table tidied, urinal emptied, with rns assistance, 2pa stand pt at bedside, assisted pt to the toilet, pt trying for a bm at this time, no bm and 2pa pt back to bed (0220) this servicing manager assist pts legs into bed, provided pt with new warm blanket, pt states no further needs at this time
--- NOTE | 2021-07-07 02:30 | NUR ---
PATIENT AMBULATED TO THE BATHROOM AND BACK TO BED WITH THIS RN AND SARA NORRIS ASSISTING HIM TO WALK. PATIENT THOUGHT HE HAD TO HAVE A BM, BUT DID NOT. UNMEASURED VOID IN THE TOILET. PATIENT SAYS HE IS HAVING ABD PAIN OF 9/10 AND HAS ALSO BEEN COMPLAINING OF PAIN WITH URINATION. PATIENT GIVEN PO AND IV PAINMEDICATION AND PEPTO TABS THAT HE ASKED TO ORDER INSTEAD OF MAALOX. PATIENT HAS FRESH WATER AND EOCI OFFICER AT [facility]. BOWEL TONES ARE ACTIVE AND ALL FIVE LAP SITES LOOK GOOD WITH STERI-STRIPS IN PLACE WITH ONLY OLD DRIED DRAINAGE. CALL LIGHT IS IN REACH.
--- NOTE | 2021-07-07 04:06 | NUR ---
RN INFORMED THIS RF MANAGER PT WOULD LIKE A COFFEE, IN TO PROVIDE TO PT, PT HAD NO FURTHER NEEDS AT THIS TIME
--- NOTE | 2021-07-07 05:27 | NUR ---
CAME TO PATIENT'S ROOM AFTER PATIENT CALLED SAYING HIS IV PUMP WAS PEEPING. EXPLAINED TO THE PATIENT THAT HE HAD OCCLUDED THE IV BY FLEXING HIS ARM AND KINKING THE IV. PATIENT VERBALIZED RECOGNITION OF WHAT I WAS TELLING HI. PATIENT LOOKS RELAXED. VS ARE STABLE, NO FACIAL GRIMACE, PATIENT IS NOT TENSE OR SQUIRMING. PATIENT HAS FINISHED TO CUPS OF COFFE THAT HE HAD REQUESTED. PATIENT IS TELLING ME AT THIS TIME HE HAS NOT SLEPT BECAUSE OF HIS PAIN. PATIENT NOT YET DUE FOR HIS NEXT PAIN MEDICATION AT THIS TIME. CALL LIGHT IS IN REACH AND [employer] OFFICER IS AT BED SIDE. DR.MCBEE GAYLE BE IN BY THE TIME PAIN MEDICATION IS DUE NEXT.
--- NOTE | 2021-07-07 07:27 | NUR ---
REPORT RECEIVED FROM KELBY LESTER. PT RESTING IN BED WITH HEAD OF BED ELEVATED. LAUGHING AND JOKING WITH OFFICER IN ROOM. RELAXED POSITION, SMILING. PT REPORTS 8/10 PAIN IN ABDOMEN AND STATES "IT MCKEON WHEN I PEE." URINE SAMPLE COLLECTED, CLEAR LIGHT YELLOW URINE WITH NO PARTICLES NOTED. SENT TO LAB. WILL CONSULT MD REGARDING POSSIBLE UA. PT DENIES NAUSEA. MAKING BREAKFAST FOOD DEMANDS. PT INFORMED HE WILL RECEIVE A STANDARD BREAKFAST TRAY PER HOSPITAL POLICY WITH INMATES. PT STATES "BUT I WANT TO EAT WHAT I WANT!" PT DENIES NASUEA. NO ADDITIONAL REQUESTS OR COMLAINTS. CALL LIGHT WITHIN REACH. OFFICER AT BEDSIDE.
[2021-07-07] MEDS ORDERED: AMOX TR-K CLV1 EACH PO (08:13)
[2021-07-07] MEDS ORDERED: OXYCODON-ACETA1 EAC2 PO (08:13)
[2021-07-07] MEDS ORDERED: ACETAMINOPHEN500 MG PO (08:13)
[2021-07-07] MEDS ORDERED: PEPTO-BISMOL262 MG PO (08:14)
--- NOTE | 2021-07-07 08:15 | NUR ---
PUMP ALARMING, "DISTAL OCCLUSION." PT REPORTS "I BENT MY ARM." IV ASSESSED, WNL, NO S/S PHLEBITIS NOTED. IV FLUID INFUSION RESTARTED. PT EATING BREAKFAST. NO ADDITIONAL REQUESTS OR COMPLAINTS. CALL LIGHT WITHIN REACH. OFFICER AT BEDSIDE.
--- NOTE | 2021-07-07 09:47 | NUR ---
MORNING ASSESSMENT AND MEDICATION DUE. PT RESTING IN BED, FINISHED WITH BREAKFAST. PT DENIES NASUEA. ABLE TO EAT 100% OF BREAKFAST. PT REPORTS 8/10 ABDOMINAL ACHING PAIN, MOSTLY LOCATED AT UMBILICAL INCISION. SEE MAR FOR MEDICATINO GIVEN. VITAL SIGNS STABLE. PT READY FOR DISCHRAGE. IV DC'D PER PROTOCOL, GAUZE AND COBAN APPLIED. PT ALERT AND ORIENTED. PT CONTINUES TO REPORT WEAKNESS TO LLE, STATES HE IS UNABLE TO LIFT LEFT LEG OFF OF BED. PT IS HOWEVER, ABLE TO MOVE LEGS AND STAND AT BEDSIDE WHILE GETTING DRESSED. PT ALSO REPORTS NUMBNESS TO LEFT LOWER EXTREMITIY (LLE). PT ABLE TO STAND WHILE GETTING DRESSED WITH NO SUPPORT AND TRANSFER SELF TO WHEELCHAIR. LUGN SOUNDS CLEAR. HEART TONES REGULAR. ABDOMENT SOFT BUT TENDER TO TOUCH. LAPAROSCOPIC SITES X5 WNL WITH EDGES WELL APROXIMATED, STERI STRIPS INTACT AND NO NEW DRAINGE NOTED. ALLEVYN TO LEFT HIP REMAINS C/D/I. DISCHARGE INSTRUCTIONS REVIEWED WITH PT AND OFFICER. PT VERBALIZES UNDERSTNDING OF WOUND CARE, INSTRUCTIONS, ACTIVITY RESTRICTIONS, MEDICATIONS, AND INFECTION PREVENTION. DISCHRAGE PACKET GIVEN TO OFFICER. PT DENIES ADDITIONAL REQUESTS OR CONCERNS AND STATES "OH, I FEEL A LOT BETTER NOW." PT WHEELED FROM MED/SURG BY OFFICER WITH JOHNNY RUIZ, ACCOMPVINNY.
--- NOTE | 2021-07-07 11:09 | NUR ---
CALL PLACED TO [facility]. TO GIVE REPORT ON PT. NO ANSWER AT THIS TIME. MESSAGE LEFT FOR CALL BACK.
--- NOTE | 2021-07-07 11:28 | NUR ---
ADDITIONAL CALL PLACED TO [facility] SUTTON FOR REPORT. NO ANSWER AT THIS TIME.
--- NOTE | 2021-07-07 11:54 | NUR ---
CALL RECEIVED FROM KELBY PARK. REPORT GIVEN. VIVIAN QUESTIONS WHEN PT CAN BE ADVANCED TO A REGULAR DIET. DR. WRIGHT CALLED AND STATES PT CAN ADVANCE TO A REGULAR DIET TOLERATED. MESSAGE GIVEN TO VIVIAN. VIVIAN STATES ALL HER QUESTIONS HAVE BEEN ANSWERED.
--- NOTE | 2021-07-07 16:26 | HP ---
[facility] [address], [place] [address] Signed ADMISSION DATE: 07/05/2021 REASON FOR ADMISSION: Weight loss, diarrhea, abdominal pain, and intestinal dilation on CT scan. HISTORY OF PRESENT ILLNESS: This patient is a resident at the local group home who has been incarcerated for least 100 days. He was seen in the emergency room by Dr. Rodney Nugent for complaints of abdominal pain. He was evaluated in the emergency room approximately five days ago with an occult possible enteritis and diarrhea and a CT scan that showed fluid-filled intestine. He was prescribed Imodium. He has had no bowel movement in five days though his complaint also include diarrhea previously. He has had associated nausea and vomiting as well. The patient was seen by Dr. Nugent with history of abdominal pain and weight loss in the past. A CT scan a few days ago showed no specific findings to account for these problems. He was admitted overnight. An upper endoscopy performed by a [facility] surgeon, which showed mild gastritis but no sign of stricture or anything of that sort. He was hospitalized in early April with a fall in which he complained of inability to move his arms and legs. An MRI was performed showing no acute abnormalities. Three days later, he was discharged without any neurologic deficit. It was thought by most personnel that his complaint was factitious, so as to effect an early release from the group home, but obviously that did not occur. He remained in custody continuously. He underwent CT scan again today which showed worsening of dilation of small intestine and inflammation of walters of several segments of distal jejunum and proximal ileum, but no specific mechanical obstruction. I have reviewed those films with Dr. Bong Wallace. There is no distinct stricture or anything to suggest Crohn disease per se. He was evaluated by Dr. Dacosta, who felt that his tenderness of the abdomen was problematic and considered medical or surgical admission based on his current symptoms. PAST MEDICAL HISTORY: As noted. He denies any prior abdominal surgery in the past. He does say his father had colon cancer and a brother had another malignancy that he cannot recount. Patient described later a blunt force injury to the trachea, but no surgical intervention for it. REVIEW OF SYSTEMS: He denies any shortness of breath or actual chest pain. He does describe cervical Electronically Signed By: ALF WRIGHT MD 07/07/21 1626 PATIENT NAME: RUFUS CHA HISTORY AND PHYSICAL DATE OF : 65 REPORT #: [id number] PHYSICIAN: ALF WRIGHT MD PCP: SILAS MILIAN REPORT IS CONFIDENTIAL AND NOT TO BE RELEASED WITHOUT AUTHORIZATION [facility] [address], [place] [address] Signed dysphagia but again a recent upper endoscopy performed showed no sign of stricture or other problem. He has had no hematemesis. He does say he has had diarrhea and alternatively medical records describe no bowel movement since . PHYSICAL EXAMINATION: GENERAL: This is a thin white man who does not appear systemically toxic, but does appear unwell. VITAL SIGNS: His temperature is 99.4 at 10:30 a.m. today (it is now 4 p.m.). His pulse is 72, respirations 14, blood pressure 129/98, pulse oximetry 99%. A COVID test was obtained. Serology is negative. LUNGS: Trachea is midline. He has no hoarseness. Chest shows thin chest wall with retractions in ventilations. ABDOMEN: Not distended, but is somewhat doughy in appearance. He does have tenderness most dominantly in the left upper abdomen. There is no focal mass. He does not have generalized peritonitis that I can tell. EXTREMITIES: Show no clubbing, cyanosis, or edema. LABORATORY STUDIES: Show sodium of 145, potassium 3.1, creatinine of 0.5, glucose is 97, magnesium not obtained. Liver enzymes appear normal low. AST 9, bilirubin 0.5, alkaline phosphatase 73, total protein 5.9, albumin 3.5, lipase 10. ASSESSMENT: It is quite unclear exactly what his problem is. He was thought to have an enteritis of some type and was treated only with Imodium but no antibiotics. He has had diarrhea, but now complains of constipation. His weight loss is significant and approximately 40 to 50 pounds from records based on records I have reviewed and discussions I had with the emergency room physician. This may well represent inflammatory bowel disease or some other infectious enteritis. Given his marginal ability to tolerate oral intake, abdominal tenderness, and so fourth I think it is unlikely this represents an actual surgical problem, but given the overall circumstances I will admit him to surgical service for fluid resuscitation and additional evaluation. He may require laparoscopy to affirm refute the possibility of bowel obstruction or that of inflammatory bowel disease. Additionally, given everything else, the possibility of celiac disease must be considered, however, unlikely that might be. We will obtain a TTG test for that. Electronically Signed By: ALF WRIGHT MD 07/07/21 1626 PATIENT NAME: RUFUS CHA HISTORY AND PHYSICAL DATE OF : 65 REPORT #: [id number] PHYSICIAN: ALF WRIGHT MD PCP: SILAS MILIAN REPORT IS CONFIDENTIAL AND NOT TO BE RELEASED WITHOUT AUTHORIZATION [facility] [address] [place] [address] Signed MD RENETTA Shelton/ROSINAL /[id number] cc: MD Martin Ramos MD Copies: RODNEY NUGENT MD, BRIAN DO ~ Electronically Signed By: ALF WRIGHT MD 07/07/21 1626 PATIENT NAME: RUFUS CHA HISTORY AND PHYSICAL DATE OF : 65 REPORT #: [id number] PHYSICIAN: ALF WRIGHT MD PCP: SILAS MILIAN REPORT IS CONFIDENTIAL AND NOT TO BE RELEASED WITHOUT AUTHORIZATION
--- NOTE | 2021-07-07 16:26 | DS ---
[facility] [address], [place] [address] Signed ADMISSION DATE: 07/05/2021 DISCHARGE DATE: 07/07/2021 REASON FOR ADMISSION: This 56-year-old white man is a prisoner at the local retirement and presents to the emergency room and evaluated by Dr. Rodney Sharpe for complaints of persistent abdominal pain. He has had a long and rather complicated history of abdominal pain and progressive profound weight loss over the past several months, up to 50 pounds from what it has been documented. His evaluation included a CT scan of the abdomen which showed segments of dilated mid small bowel, but no actual stricture or neoplasm. He had no other findings that would account for his pain, nausea and intolerance of oral intake. He was admitted for further evaluation and care. PERTINENT PHYSICAL EXAMINATION: GENERAL: Showed a temperature of 99.4, pulse is 72, respirations 14, blood pressure 129/98, O2 saturation 99%. COVID test negative. CHEST: Clear. HEART: Regular without murmur. ABDOMEN: Nondistended, but was somewhat doughy in appearance. He did have tenderness most dominant in the left upper abdomen. There is no focal mass. He had no generalized peritonitis to my examination. LABORATORY STUDIES: Showed a sodium of 145, potassium 3.1, creatinine 0.5, glucose 97. Liver enzymes normal low, AST 9, bilirubin 0.5, alkaline phosphatase 73, total protein 5.9, albumin 3.5, lipase 10. HOSPITAL COURSE: He was admitted with co-management with Internal Medicine. Fluid was administered intravenously and empiric treatment with cefoxitin was initiated. He had still diffuse abdominal tenderness the following morning and on the basis of his ambiguity of his findings on CT scan, I recommended laparoscopy for diagnosis to assess for inflammatory bowel disease or other causes that may unify the diagnosis. On July 06, 2021, he underwent laparoscopy, he was found to have no evidence of stricture or specifically abnormally dilated bowel. The intestine was examined from the terminal ileum proximally to the ligament of Treitz. There was no sign of bowel obstruction. The colon was normal. There is no ascites or carcinomatosis and the liver was normal. The gallbladder itself though was markedly chronically inflamed with omental adhesions. On that basis, cholecystectomy with cholangiogram was performed. Cholangiogram was normal. The appendix was evaluated and found to have mild chronic inflammation, but certainly not the cause of his current problem. Electronically Signed By: ALF WRIGHT MD 07/07/21 1626 PATIENT NAME: RUFUS CHA DISCHARGE SUMMARY DATE OF : 65 REPORT #: [id number] PHYSICIAN: ALF WRIGHT MD PCP: SILAS MILIAN REPORT IS CONFIDENTIAL AND NOT TO BE RELEASED WITHOUT AUTHORIZATION [facility] [address] [place] [id number] Signed It must be noted that he has an extremely difficult airway for intubation, which did require bronchoscopic assistance, but was accomplished safely. Postoperatively, he still complained of abdominal pain, but was able to tolerate food without problem and was able to ambulate with assistance. He was kept overnight for continued observation and had progressive improvement. His discharge lab studies showed a white count of 9.7, hematocrit of 32.8, platelets of 269,000. His preoperative sedimentation rate was 10. Electrolytes at discharge were normal. His AST was 81, ALT 83, alkaline phosphatase 230, bilirubin 0.5. These somewhat elevated liver enzymes related to dissection in the hepatic bed related to cholecystectomy and are not of concern. His celiac disease panel is still pending at time of discharge. Notably, his COVID status is negative. DISCHARGE MEDICATIONS: Include: 1. Augmentin 500/125 one tab p.o. t.i.d. #20. 2. Oxycodone/Tylenol 7.5/325 1-2 p.o. q.6 hours as needed for pain #10. 3. Tylenol 1000 mg p.o. q.6 hours as needed for lesser pain #60. 4. Pepto-Bismol tablet 524 mg p.o. q.6 hours as needed for GI upset. He will continue with his PPI medication, Protonix 40 mg p.o. b.i.d. as well as Zofran 4 mg b.i.d. as needed for nausea and simethicone 80 mg p.o. b.i.d. as needed. DISCHARGE DIAGNOSES: 1. Abdominal pain, diarrhea, history of profound progressive weight loss, etiology uncertain. 2. Chronic calculous cholecystitis, status post laparoscopic cholecystectomy with cholangiogram, coincidental appendectomy as well as thorough intraabdominal examination (laparoscopically). 3. History of cervical tracheal injury, now with distortion of airway and difficult intubation (required bronchoscopic assistance). FOLLOWUP PLANS: An appointment will be arranged for one month following discharge if feasible. If not logistically feasible, followup by medical personnel at [facility] as appropriate. Alf Wright MD Electronically Signed By: ALF WRIGHT MD 07/07/21 1626 PATIENT NAME: RUFUS CHA YANIRA DISCHARGE SUMMARY DATE OF : 65 REPORT #: [id number] PHYSICIAN: ALF WRIGHT MD PCP: SILAS MILIAN REPORT IS CONFIDENTIAL AND NOT TO BE RELEASED WITHOUT AUTHORIZATION [address] [place] [address] Signed /SOHAIL /[id number] cc: MD Martin Ramos, ANITHA Esposito Copies: RODNEY SHARPE MD, BRIAN DO JARRELL, RANDALL PA ~ Electronically Signed By: ALF WRIGHT MD 07/07/21 1626 PATIENT NAME: RUFUS CHA DISCHARGE SUMMARY DATE OF : 65 REPORT #: [id number] PHYSICIAN: ALF WRIGHT MD PCP: SILAS MILIAN REPORT IS CONFIDENTIAL AND NOT TO BE RELEASED WITHOUT AUTHORIZATION
--- NOTE | 2021-07-07 16:26 | OR ---
[facility] [address] [place], [place] [address] Signed DATE OF OPERATION: 07/06/2021 SURGEON: Alf Wright MD PREOPERATIVE DIAGNOSES: 1. Persistent generalized abdominal pain; recent CT with small bowel distention (segmental) without obvious obstruction. 2. Profound ongoing progressive weight loss. 3. History of cervical dysphagia. 4. Distant history of laryngeal tracheal injury. POSTOPERATIVE DIAGNOSES: 1. No evidence of small bowel obstruction or evidence of inflammatory bowel disease; minimal small bowel serositis. 2. Chronic calculous cholecystitis with advanced adhesions to the gallbladder. 3. Possible chronic appendicitis, no sign of acute appendicitis. 4. Difficult airway (requiring bronchoscopic placement of endotracheal tube). PROCEDURE: 1. Laparoscopy with full evaluation of small bowel and intraabdominal contents. 2. Laparoscopic cholecystectomy with intraoperative cholangiogram and surgeon-directed fluoroscopy. 3. Laparoscopic appendectomy. 4. Minimal lysis of adhesions. ANESTHESIA: General endotracheal, Gus Sykes CRNA and local 20 mL of 0.25% Marcaine with epinephrine. INDICATION: This 56-year-old white man is a prisoner at [facility] and has been incarcerated for at least 100 days. He has had progressive and significant weight loss over time approximately 50 pounds over the time of his incarceration. Various reports described the patient unwilling to eat and discarding his meals that are presented to him as well as general unwillingness to be out of bed causing a small decubitus in his buttocks area. He was recently evaluated in [facility] and underwent upper endoscopy by Dr. Chaidez showing mild chronic gastritis. He is noted to have progressive weight loss over time and presented yesterday to the emergency room once again with generalized severe abdominal pain without focality and a CT scan additionally performed, showed two segments of small bowel which appeared to be dilated, but not Electronically Signed By: ALF WRIGHT MD 07/07/21 1626 PATIENT NAME: RUFUS CHA OPERATIVE REPORT DATE OF : 65 REPORT #: [id number] PHYSICIAN: ALF WRIGHT MD PCP: SILAS MILIAN REPORT IS CONFIDENTIAL AND NOT TO BE RELEASED WITHOUT AUTHORIZATION [facility] [address] [place], [place] [address] Signed obstructed per se. There was no evidence of colitis or obvious enteritis proper. He had no free air. His lab studies were relatively normal. A celiac disease panel was drawn, but has not yet returned. He was empirically treated with antibiotic Ancef rather cefoxitin. On examination today, he remains quite tender diffusely and without focal tenderness. He has had no further nausea or vomiting, though previously he is said to have that. Additionally, he has previously noted to have significant diarrhea, but more recently constipation. His situation is rather enigmatic as to the etiology of his problem in particularly his weight loss and concern is maintained on my part for possible Crohn's disease, celiac disease, or occult small-bowel obstruction that may account for his problem. I have offered to the patient diagnostic laparoscopy and other indicated procedures as deemed appropriate possibly laparotomy as well. The risks of bleeding, infection, need for other procedures including those not generally anticipated were reviewed in detail. He understands and wished to proceed. FINDINGS: Intraabdominal inspection showed no sign of ascites or carcinomatosis. The liver was normal. The small bowel was carefully examined from the terminal ileum proximally to the ligament of Treitz showing no evidence of inflammatory bowel disease, obstruction or neoplasm or Meckel's diverticulum. There were some certain segments of the small bowel that were mildly dilated, but did not appear to be acutely inflamed per se though there was a mild serositis generally. The gallbladder, however, did have chronic longstanding inflammation with dense omental adhesions to the undersurface of the liver and the gallbladder and found to have significant edema of the wall of the gallbladder consistent with probable subacute cholecystitis. Cholecystectomy was performed showing a normal cholangiogram and gallbladder once opened showed sludge as well as cholesterolosis and small stones. The colon itself appeared normal. The appendix was somewhat retrocecal in its position and although not acutely inflamed, was excised as it may have chronic appendicitis. Quite notably he had very difficult airway in part related to a neck fusion and additionally related to self-described tracheal injury in the past. Indeed, intubation was difficult requiring a combination of the GlideScope as well as a GlideScope bronchoscope, but was accomplished safely. DESCRIPTION OF PROCEDURE: The patient was brought to the operating room and had been given antibiotic cefoxitin and sequential compression device stockings were in place. The patient was recognized as having probably difficult airway and on that basis, intubation was undertaken with the assistance of not only the GlideScope, but the GlideScope Bronchoscope. A team Electronically Signed By: ALF WRIGHT MD 07/07/21 9378 PATIENT NAME: RUFUS CHA OPERATIVE REPORT DATE OF : 65 REPORT #: [id number] PHYSICIAN: ALF WRIGHT MD PCP: SILAS MILIAN REPORT IS CONFIDENTIAL AND NOT TO BE RELEASED WITHOUT AUTHORIZATION [address] [address] Signed effort between the tray packer and surgeon allowed for intubation of the somewhat distorted appearing airway. The passage of the endotracheal tube was accomplished completely and safely ultimately. The abdomen was clipped and prepared with a chlorhexidine solution after placement of a Almaguer catheter. An infraumbilical incision was made and using an open Jermaine cannula technique, pneumoperitoneum was achieved to a level of 14 mmHg of carbon dioxide gas. Intraabdominal inspection showed no sign of ascites or carcinomatosis. The liver appeared normal. The gallbladder was obscured from view related to omental adhesions. There were few adhesions of the right colon to the anterior abdominal wall. An epigastric 12 mm port was placed and the camera replaced to that site and single hand manipulation with laparoscopic grasping device showed no sign of abscess or focal inflammatory or obstructive process of bowel. The right lower quadrant 5 mm port was placed and with two-hand manipulation, the right colon was examined and found to be normal as was the terminal ileum as manifested by the antimesenteric fat pad of Treves. The small bowel was then run from the terminal ileum more proximally to the ligament of Treitz. Meticulous and careful manipulation were undertaken showing no evidence of pathology of the small bowel particular. There was mild inflammation, but certainly no creeping fat stricture, neoplasm, obstructing adhesion or other abnormality. Additional inspection of the gallbladder was then undertaken. It appeared that the gallbladder was "socked in" by dense adhesions. The tip of the gallbladder was elevated and using blunt and electrocautery dissection, the omental adhesions were taken down. An additional 5 mm right-sided trocar was placed allowing for further manipulation and evaluation of the gallbladder. Quite clear the gallbladder was chronically inflamed as manifested by adhesions and so forth. Mindful of his extremely difficult airway and enigmatic nature of his weight loss and abdominal pain complaints over time, a strong consideration was made that the gallbladder may be contributing to the issue. On that basis and mindful of latitude that he allowed for solving his problem, I believed that cholecystectomy would be appropriate. The gallbladder was freed completely and retracted laterally and using blunt and electrocautery dissection, the triangle of Calot was dissected free. Edema was noted of the soft tissues around the infundibulum of the gallbladder further confirming the probability of chronic cholecystitis. Once the cystic duct was well identified and the cystic artery identified and doubly clipped, a clip was applied across gallbladder cystic duct junction. A transverse choledochotomy was made in the cystic duct and egress of clear dark bile was noted. Using an Cardoso type cholangiocatheter, intraoperative cholangiography was undertaken showing free flow of contrast in the biliary tree with prompt emptying into the duodenum. There was no biliary anomaly. The cystic duct was rather long and there was no sign of impediment of flow of contrast into the duodenum. Catheter was removed and the cystic duct was triply clipped and divided Electronically Signed By: ALF WRIGHT MD 07/07/21 1626 PATIENT NAME: RUFUS CHA OPERATIVE REPORT DATE OF : 65 REPORT #: [id number] PHYSICIAN: ALF WRIGHT MD PCP: SILAS MILIAN REPORT IS CONFIDENTIAL AND NOT TO BE RELEASED WITHOUT AUTHORIZATION [address] [address] Signed and the gallbladder was dissected free in a retrograde fashion using electrocautery. At the near completion of the cholecystectomy, a small entry was made into the gallbladder for spillage of some dark bile, this was suctioned free and there was no spillage of stones. The gallbladder was extracted with use of an endobag and examined on the back table and found to have cholesterolosis as well as few small gallstones concordant to his underlying pathologic findings. Irrigation was undertaken in the subhepatic space. The gallbladder had been noted to be somewhat intrahepatic. Meticulous care was taken for good hemostasis and additionally, Tisseel was insufflated in the subhepatic space to assure hemostasis. Excess irrigation fluid was then suctioned free. Mindful of the patient's very difficult airway and enigmatic causes of his abdominal issues over the past few months, additional inspection was undertaken of the appendix. Notably, the appendix was somewhat retrocecal. With various manipulations and some freeing of the right colon from the abdominal wall, the appendix could be more fully evaluated. It did not appear acutely inflamed, but may have chronic inflammation. It was grasped and gently elevated and ultimately appendectomy deemed advisable. A window was created in the appendix and the mesoappendix and an Endo-DUARTE stapling device was used to transect the base of the appendix, flushed with the cecum. The mesentery was similarly divided with the Endo-DUARTE stapling device. The appendix was extracted through the infraumbilical port site, withdrawn trocar providing barrier against the subcutaneous space itself. It was examined and found to have possibly mild chronic inflammation and no acute inflammation. Irrigation was undertaken in the right lower abdomen, excess irrigation of fluid was suctioned free. Reinspection of the upper abdomen was undertaken showing no sign of bile leak, bleeding or other issue. The trocars removed under direct visualization. The infraumbilical fascial incision was reapproximated with interrupted 0 Vicryl suture. Irrigation was undertaken of all wounds and 20 mL of 0.25% Marcaine with epinephrine injected locally. The skin was then closed with interrupted 3-0 Vicryl and Steri-Strips were applied. The patient was allowed to emerge fully from anesthesia before extubation given his difficult airway, he tolerated this well and there was no sign of problem. Almaguer catheter that had been placed was removed. The patient was then taken to the recovery room in good condition having suffered no complications. Sponge, needle, and instrument counts were reported as correct x3. Alf Wright MD Electronically Signed By: ALF WRIGHT MD 07/07/21 1626 PATIENT NAME: RUFUS CHA OPERATIVE REPORT DATE OF : 65 REPORT #: [id number] PHYSICIAN: ALF WRIGHT MD PCP: SILAS MILIAN REPORT IS CONFIDENTIAL AND NOT TO BE RELEASED WITHOUT AUTHORIZATION [facility] [address] [place], [place] [address] Signed /[facility] /[id number] cc: [facility] Department MD Silas Urbina PA Copies: MILA BARILLAS RANDALL PA ~ Electronically Signed By: ALF WRIGHT MD 07/07/21 1626 PATIENT NAME: RUFUS CHA OPERATIVE REPORT DATE OF : 65 REPORT #: [id number] PHYSICIAN: ALF WRIGHT MD PCP: SILAS MILIAN REPORT IS CONFIDENTIAL AND NOT TO BE RELEASED WITHOUT AUTHORIZATION
--- NOTE | 2021-07-08 15:53 | PATH ---
[facility] [address] [place], [place] [address] Signed SPECIMEN(S): A GALLBLADDER SPECIMEN(S): B APPENDIX SPECIMEN SOURCE: A. GALLBLADDER B. APPENDIX CLINICAL HISTORY: Abdominal pain FINAL PATHOLOGIC DIAGNOSIS: A. Gallbladder, cholecystectomy: - Chronic cholecystitis. - Cholelithiasis. - Cholesterolosis. - No evidence of neoplasia. B. Appendix, appendectomy: - No evidence of acute or chronic appendicitis. - No evidence of periappendicitis. - No evidence of neoplasia. TWK:emh:C2NR MICROSCOPIC EXAMINATION: Histologic sections of all submitted blocks are examined by light microscopy. These findings, together with the gross examination, support the pathologic diagnosis. GROSS DESCRIPTION: Two specimens are received in two containers, labeled "SF." A. The specimen, labeled "SF, A," and designated on the requisition "gallbladder," is received in formalin and consists of: Specimen: Previously incised gallbladder. Dimensions: Upon reconstruction, 8.2 x 3.0 x 2.2 cm. Serosa: Ragged, partially fat covered, and zuniga to bile-stained. Cystic Duct: 0.9 cm in diameter, patent, and the margin is inked blue. Calculi: The gallbladder and specimen container contain multiple yellow, nodular, friable, hard calculi from less than 0.1 up to 0.3 cm in greatest dimension. Mucosa: Green, velvety, and glistening. Wall thickness: Uniform and 0.3 cm. Lymph node: No pericystic lymph nodes are grossly identified. PATIENT NAME: RUFUS CHA PATHOLOGY DATE OF : 65 REPORT #: [id number] PHYSICIAN: JOSE ELIAS CROCKER PCP: SILAS MILIAN REPORT IS CONFIDENTIAL AND NOT TO BE RELEASED WITHOUT AUTHORIZATION [facility] [address] [place], [place] [address] Signed Additional: None. Photonics Technician sections are submitted in cassette (A1). B. The specimen, labeled "SF, B," and designated on the requisition "appendix," is received in formalin and consists of: Specimen: Appendix with mesoappendix. Dimensions: 5.7 cm long, 0.7 cm diameter appendix with attached mesoappendix up to 1.4 cm wide. Serosa: Zuniga, smooth, and glistening. Perforation: A transmural defect is not grossly identified. Inking: Staple line is inked black. Mucosa: The appendix contains a copious amount of thick zuniga to black pasty material and is lined by partially flattened, zuniga to brown mucosa without a discrete mass/lesion. Fecalith: Not grossly identified. Additional: None. Photonics Technician sections are submitted in cassette (B1). AI (under the direct supervision of a pathologist) The Gross Description was prepared using a voice recognition system. The report was reviewed for accuracy; however, sound-alike word errors, addition and/or deletions may occur. If there is any question about this report, please contact Client Services. PERFORMING LABORATORY: The technical component was performed by [facility] [address] (Car Changer: Monica Ballesteros MD; CLIA# [id number]). [facility] [address] [address] (CLIA# [id number]). Diagnostician: Abe Muñiz MD Pathologist Electronically Signed 07/08/2021 Copies: ~ PATIENT NAME: RUFUS CAH PATHOLOGY DATE OF : 65 REPORT #: [id number] PHYSICIAN: JOSE ELIAS CROCKER PCP: SILAS MILIAN REPORT IS CONFIDENTIAL AND NOT TO BE RELEASED WITHOUT AUTHORIZATION
== END 2021-07-07 10:00 | disposition home or self-care (01) | DRG 357 ==
LOC: ED 10:30 → MS 15:31
PROVIDERS: Surgery; ADMIT Student in an Organized Health Care Education/Training Program; ATTEND Student in an Organized Health Care Education/Training Program
PROC: 0FT44ZZ Resection of Gallbladder, Percutaneous Endoscopic Approach (ICD-10-PCS; principal; 2021-07-06 08:50)
PROC: BF101ZZ Fluoroscopy of Bile Ducts using Low Osmolar Contrast (ICD-10-PCS; 2021-07-06 08:50)
DX: R10.84 Generalized abdominal pain (principal); K80.10 Calculus of gallbladder with chronic cholecystitis without obstruction; R64 Cachexia; R19.7 Diarrhea, unspecified; Z20.822 Contact with and (suspected) exposure to COVID-19; I10 Essential (primary) hypertension; J44.9 Chronic obstructive pulmonary disease, unspecified; Z98.890 Other specified postprocedural states; Z79.899 Other long term (current) drug therapy
CPT/HCPCS: 00790; 74022; 74177; 74300; 80048; 80053; 81001; 83690; 83735; 85025; 85651; 99285-25; C9113; C9803; J0131; J0330; J0694; J1100; J1644; J1885; J2270; J2405; J2704; J3010; J3475; J3480; J7030; J7060; J7121; Q9967; U0003